=== PATIENT | female | born 1995 | race Caucasian/White ===

== ENCOUNTER → 2017-08-22 | Day surgery (SDC) | payer OTHER, SELFPAY | END | disposition home or self-care (01) | PROVIDERS: Family Provider Registered Nurse Diabetes Educator; PCP Registered Nurse Diabetes Educator; Visit Provider Specialist | DX: K43.9 Ventral hernia without obstruction or gangrene (principal) | CPT/HCPCS: 49560; J0690; J1100; J2175; J2250; J2405; J2704 ==

== ENCOUNTER 2018-08-30 15:23 | Emergency (ER) | payer OTHER, SELFPAY ==
[2018-08-30 15:34] VITALS: BP 123/70; PULSE 89; RESP 16; TEMP 36.9; O2SAT 99
--- NOTE | 2018-08-30 16:28 | PC.NURSE ---
pt reports, status post chiari decompression, august 11, noticed leaking, it was reglued. had lab work done at [facility] , pt continue to have discharged. site with minimal dc noted, site with derma bynum. pt reports, nausea, just removed her scopolamine patch, with dizziness with orthostatic, denies swallowing problem, denies paresthesia in all ext. denies any respiratory distress. \alert and awake, oriented x4, moving all ext well, skin warm dry pink. family at bs.
[2018-08-30 16:30] VITALS: BP 135/71; PULSE 55; RESP 14; O2SAT 97
--- NOTE | 2018-08-30 17:03 | DI.CT.S_ITS ---
PROCEDURE: CT CERVIAL SPINE W CON INDICATIONS: incision site drainage TECHNIQUE: After the administration of intravenous Isovue contrast, 3 mm thick sections acquired through the levels of interest. Sagittal and coronal reformats were then constructed. For radiation dose reduction, the following was used: automated exposure control. COMPARISON: [facility], CT, CT HEAD/BRAIN WO CON, 08/30/2018, 17:07. FINDINGS: Image quality: Excellent. Bones: No acute cervical spine fracture. There is straightening of the normal cervical lordosis. There is resection of the posterior occipital bone, posterior arch of C1, and posterior elements of C2. Soft tissues: There post surgical changes of recent posterior occipital craniectomy/posterior fossa decompression surgery, with overlying soft tissue edema. There is a 5.1 cm craniocaudal by 3.0 cm transverse by 3.8 cm anteroposterior fluid collection in the posterior occipital/posterior superior neck resection cavity. This fluid collection does not have a well formed wall, but demonstrates minimal peripheral contrast enhancement. Cerebellar tonsils are low-lying. There is mild bilateral cervical lymphadenopathy. IMPRESSION: 1. Postsurgical changes of recent posterior occipital craniectomy/posterior fossa decompression surgery with resection of the posterior arch of C1 and posterior elements of C2. 5.1 cm fluid collection in the posterior fossa/neck resection site likely represents a postsurgical seroma, although a CSF leak/collection or developing abscess could appear similar. There is no well-formed abscess wall on today's exam; minimal peripheral contrast enhancement may represent inflammation surrounding the surgical site. Recommend follow-up contrast-enhanced cross-sectional imaging to demonstrate stability/resolution. 2. Mild bilateral cervical lymphadenopathy, likely reactive to postsurgical changes described above. Attention on followup imaging recommended. 3. No acute cervical spine fracture. There is straightening of the normal cervical lordosis, which can be positional or secondary to muscle spasm. Findings discussed with the referring provider Dr. Melody Rooney at 6:50 PM on 08/30/[address] Jessica. Dictated by: Hay Jessica M.D. on 08/30/2018 at 19:24 Approved by: Hay Jessica M.D. on 08/30/2018 at 19:35
--- NOTE | 2018-08-30 17:03 | DI.CT.S_ITS ---
PROCEDURE: CT HEAD/BRAIN WO CON INDICATIONS: recent arnold Chiari surgery TECHNIQUE: Noncontrast 4.5 mm thick angled axial sections acquired from the foramen magnum to the vertex, with coronal and sagittal reformats. For radiation dose reduction, the following was used: automated exposure control, adjustment of mA and/or kV according to patient size. COMPARISON: None. FINDINGS: Image quality: Excellent. CSF spaces: Basal cisterns are patent. No extra-axial fluid collections. Ventricles are normal in size and shape. Brain: No midline shift. No intracranial masses or hemorrhage. Sims-white matter interface is normal. Skull and face: There are postsurgical changes of recent posterior occipital craniectomy/posterior fossa decompression surgery as well as resection of the posterior arch of C1. There is at least 3.0 cm partially imaged fluid collection in the craniectomy site resection bed. Sinuses: Visualized sinuses and mastoids are clear. IMPRESSION: 1. Postsurgical changes of recent posterior occipital craniectomy/posterior fossa decompression surgery with resection of the posterior arch of C1. A partially imaged at least 3.0 cm fluid collection in the posterior fossa/neck resection site likely represents a postsurgical seroma, although a CSF leak/collection or abscess could appear similar. 2. Otherwise, no acute intracranial abnormality. Findings discussed with the referring provider Dr. Melody Rooney at 6:50 PM on 08/30/[address] Jessica. Dictated by: Hay Jessica M.D. on 08/30/2018 at 18:48 Approved by: Hay Jessica M.D. on 08/30/2018 at 19:23
--- NOTE | 2018-08-30 17:08 | ED_ITS ---
HPI - Skin/Abscess/Foreign Bdy General Chief complaint: Skin/Abscess/Foreign Body Stated complaint: wound leaking from surgery Time Seen by Provider: 08/30/18 15:37 Source: patient and family Mode of arrival: ambulatory Limitations: no limitations History of Present Illness HPI narrative: Patient is a 22-year-old female who had Arnold-Chiari malformation and repair on 08/11/2018. She has been doing well. Her wound did dehisced about a week ago. A neurologist tried to repair the incision site with Dermabond. The Dermabond has fallen out mostly patient is having pain at the incision site. It is not erythematous. Mom states that the drainage is significantly worse and was running down her back. Mom says that it was mostly clear. She has not had any fever although she has been taking Tylenol ibuprofen and hydrocodone around the clock. She denies any numbness tingling or weakness in extremities. Related Data Home Medications Medication Instructions Recorded Confirmed biotin PO #0 06/08/16 norgestimate-ethinyl estradiol 1 tab PO QDAY #0 06/08/16 [Ortho-Cyclen (28)] Previous Rx's Medication Instructions Recorded cephalexin [Keflex] 500 mg PO QID #30 cap 08/30/18 hydrocodone-acetaminophen [Lewisberry] 1 tab PO Q4-6H PRN #10 tab 08/30/18 Allergies Allergy/AdvReac Type Severity Reaction Status Date / Time No Known Drug Allergies Allergy Verified 08/30/18 18:16 Review of Systems Review of Systems GENERAL: Denies chills, fatigue, malaise, fever, sweats, travel HEENT: Denies sinus pain, ear pain, sore throat, difficulty swallowing, neck pain RESPIRATORY: Denies dyspnea, cough, wheezing, hemoptysis, sputum. CARDIOVASCULAR: Denies chest pain, palpitations, orthopnea, edema GASTROINTESTINAL: Denies nausea, vomiting, abdominal pain, diarrhea, constipation, melena. : Denies dysuria, frequency, incontinence, hematuria, urinary retention, flank pain. MUSCULOSKELETAL: Denies weakness, joint pain, or bony pain SKIN: No rash, no erythema, no pruritus NEUROLOGIC: Denies weakness, dizziness, headache, numbness, change in speech, confusion PSYCHIATRIC: No concerning psychosocial issues. 12 point review of systems is negative except for those stated above and HPI [facility] Medical History Arnold-Chiari malformation (Acute) Social History Smoking Status: Never smoker Social History Smoking Status: Never smoker Exam Initial Vital Signs Initial Vital Signs: Vital Signs Temperature 98.4 F 08/30/18 15:34 Pulse Rate 89 08/30/18 15:34 Respiratory Rate 16 08/30/18 15:34 Blood Pressure 123/70 08/30/18 15:34 Pulse Oximetry 99 08/30/18 15:34 GENERAL: Alert young female no acute distress HEENT: Head atraumatic,EOMI, pupils reactive. incision site noted dehiscence. CARDIOVASCULAR: Regular rate and rhythm without murmurs, rubs or gallops. RESPIRATORY: Breath sounds equal bilaterally, no wheezes rales or rhonchi. ABDOMEN: Soft, nontender. Normoactive bowel sounds all 4 quadrants. No guarding or rebound. EXTREMITIES: Normal range of motion, no clubbing or edema. Neurovascularly intact NEUROLOGICAL: Alert and oriented x4.Normal gait and speech. Cranial nerves II through XII grossly intact. certified surgical tech/first assistant strength equal bilaterally able to flex and extend neck without difficulty. SKIN: Wound dehiscence posterior neck at incision site. Minimal erythema at the edges. No real drainage. Course Orders Ordered: Discontinued Medications Cefazolin Sodium (Keflex) [address] [facility] SEEINSTR ONE Stop: 08/30/18 19:30 Last Admin: 08/30/18 19:34 Dose: 500 mg Ketorolac Tromethamine (Toradol) 15 mg IV NOW ONE Stop: 08/30/18 18:15 Last Admin: 08/30/18 18:14 Dose: 15 mg Consultations Consultation #1: Neurosurgery premix operator concentrate, discussed patient's symptoms and test results with her. At this time recommend outpatient followup the office will call her on Saturday in 2 days. Time: 16:30 Vital Signs - 8 hr 08/30/18 15:34 08/30/18 16:30 08/30/18 18:15 Temperature 98.4 F Pulse Rate 89 55 L 91 H Respiratory Rate 16 14 15 Blood Pressure 123/70 Blood Pressure [Left Arm] 135/71 117/59 L Pulse Oximetry 99 97 100 08/30/18 18:18 Temperature Pulse Rate 90 Respiratory Rate 16 Blood Pressure Blood Pressure [Left Arm] 130/65 Pulse Oximetry 99 MDM - Skin/Abscess/Foreign Bdy Lab Data Attestation: I reviewed the patient's lab results. Result diagrams: 08/30/18 17:15 08/30/18 17:15 Lab Results 08/30/18 08/30/18 Range/Units 17:15 17:15 WBC 10.2 (4.5-11.0) X10^3/uL RBC 4.57 (4.0-5.2) X10^6/uL Hgb 12.7 (12.0-16.0) g/dL Hct 38.8 (36-46) % MCV 84.8 (80-100) fL MCH 27.9 (26-34) PG MCHC 32.8 (30-36) % RDW 16.7 H (11.6-14.8) % Plt Count 321 (150-400) X10^3/uL Neut % (Auto) 76.0 H (50-75) % Lymph % (Auto) 17.3 L (25-40) % [place] % (Auto) 5.4 (3-14) % Eos % (Auto) 0.8 L (2-4) % Baso % (Auto) 0.5 (0-2) % Neut # (Auto) 7800 H (9707-8149) /uL Lymph # (Auto) 1800 (2747-0959) /uL [place] # (Auto) 600 (0-900) /uL Eos # (Auto) 100 (0-450) /uL Baso # (Auto) 0 (0-100) /uL Sodium 139 (137-145) mmol/L Potassium 4.2 (3.4-5.1) mmol/L Chloride 101 (98-107) mmol/L Carbon Dioxide 26 (22-32) mmol/L BUN 13 (7-17) mg/dL Creatinine 0.80 (0.52-1.04) mg/dL Estimated GFR > 60.0 (>60) mL/min BUN/Creatinine Ratio 16.3 (6-22) Glucose 83 (70-100) mg/dL Calcium 9.8 (8.4-10.2) mg/dL Point of Care Testing Test Results Negative Imaging Data CT scan - head: Radiologist's impression: PROCEDURE: CT HEAD/BRAIN WO CON INDICATIONS: recent arnold Chiari surgery TECHNIQUE: Noncontrast 4.5 mm thick angled axial sections acquired from the foramen magnum to the vertex, with coronal and sagittal reformats. For radiation dose reduction, the following was used: automated exposure control, adjustment of mA and/or kV according to patient size. COMPARISON: None. FINDINGS: Image quality: Excellent. CSF spaces: Basal cisterns are patent. No extra-axial fluid collections. Ventricles are normal in size and shape. Brain: No midline shift. No intracranial masses or hemorrhage. Sims-white matter interface is normal. Skull and face: There are postsurgical changes of recent posterior occipital craniectomy/posterior fossa decompression surgery as well as resection of the posterior arch of C1. There is at least 3.0 cm partially imaged fluid collection in the craniectomy site resection bed. Sinuses: Visualized sinuses and mastoids are clear. IMPRESSION: 1. Postsurgical changes of recent posterior occipital craniectomy/posterior fossa decompression surgery with resection of the posterior arch of C1. A partially imaged at least 3.0 cm fluid collection in the posterior fossa/neck resection site likely represents a postsurgical seroma, although a CSF leak/collection or abscess could appear similar. 2. Otherwise, no acute intracranial abnormality. Findings discussed with the referring provider Dr. Melody Rooney at 6:50 PM on 08/30/[address] Gonsalez. Dictated by: Hay Gonsalez M.D. on 08/30/2018 at 18:48 CT Cervical: Radiologist's impression: PROCEDURE: CT CERVIAL SPINE W CON INDICATIONS: incision site drainage TECHNIQUE: After the administration of intravenous Isovue contrast, 3 mm thick sections acquired through the levels of interest. Sagittal and coronal reformats were then constructed. For radiation dose reduction, the following was used: automated exposure control. COMPARISON: [facility], CT, CT HEAD/BRAIN WO CON, 08/30/2018, 17:07. FINDINGS: Image quality: Excellent. Bones: No acute cervical spine fracture. There is straightening of the normal cervical lordosis. There is resection of the posterior occipital bone, posterior arch of C1, and posterior elements of C2. Soft tissues: There post surgical changes of recent posterior occipital craniectomy/posterior fossa decompression surgery, with overlying soft tissue edema. There is a 5.1 cm craniocaudal by 3.0 cm transverse by 3.8 cm anteroposterior fluid collection in the posterior occipital/posterior superior neck resection cavity. This fluid collection does not have a well formed wall, but demonstrates minimal peripheral contrast enhancement. Cerebellar tonsils are low-lying. There is mild bilateral cervical lymphadenopathy. IMPRESSION: 1. Postsurgical changes of recent posterior occipital craniectomy/posterior fossa decompression surgery with resection of the posterior arch of C1 and posterior elements of C2. 5.1 cm fluid collection in the posterior fossa/neck resection site likely represents a postsurgical seroma, although a CSF leak/collection or developing abscess could appear similar. There is no well-formed abscess wall on today's exam; minimal peripheral contrast enhancement may represent inflammation surrounding the surgical site. Recommend follow-up contrast-enhanced cross-sectional imaging to demonstrate stability/resolution. 2. Mild bilateral cervical lymphadenopathy, likely reactive to postsurgical changes described above. Attention on followup imaging recommended. 3. No acute cervical spine fracture. There is straightening of the normal cervical lordosis, which can be positional or secondary to muscle spasm. Findings discussed with the referring provider Dr. Melody Rooney at 6:50 PM on 08/30/[address] Gonsalez. Dictated by: Hay Gonsalez M.D. on 08/30/2018 at 19:24 MDM Narrative Medical decision making narrative: After speaking with neurosurgeon I went back and saw on re-evaluated patient. There is actually a small amount of gross pus. A wound culture has been sent. Family and patient frustrated. At this time will get head CT and CT neck to rule out any abscess along with repeating blood work. Dr. Gonsalez 6:50 p.m. radiologist called and spoke with me. I discussed specifically with them about a fluid collection and questionable abscess. He stated that he thought this was likely postsurgical changes. Difficult to say if there is abscess but he did not think so. Patient overall does not appear septic or toxic. She does continue to have clear drainage at her surgical site. She does have a small amount of pus from 1 area on her incision site. No significant erythema will put her on Keflex. They are given a disc with the CT images to go over with her neurosurgeon. Mom and patient overall feeling better. Discharge Plan Departure Patient Disposition: Home Clinical Impression: Cellulitis Qualifiers: Site of cellulitis: neck Qualified Code(s): L03.221 - Cellulitis of neck Discharge Date/Time: 08/30/18 19:45 Interventions: ED Discharge Assessment Last Done: 08/30/18 19:45 Instructions: DI for Cellulitis -- Adult Activity Restrictions/Additional Instructions: *You have been diagnosed with cellulitis *What to do: CT shows probable postsurgical changes. There is a small amount of infection on the skin and with incision site. However this can be managed easily with antibiotics. *Continue to take medications as directed Keflex 500 mg 4 times a day for 7 days *Follow up with your neurosurgeon 1st thing Saturday morning in fact they should call you Saturday, however he do not hear for them please call *Return to ER if you should have weakness numbness tingling in extremities, or any new, worsening or concerning symptoms CONTROLLED SUBSTANCE DISCHARGE (Narcotoic/benzodiazepine/Flexeril/Phenergan) 1. You have been prescribed narcotic medications, it does have acetaminophen/Tylenol/paracetamol in it so do not take extra Tylenol or Tylenol containing products 2. Please understand that we cannot provide further refills of narcotics, benzodiazepines or controlled substances through the ED and her pain management will need to be through your provider. 3. While on these medications you cannot drive or operate heavy machinery. 4. You cannot sign legal documents or perform any duties such as this. 5. As long as you're taking opiate pain medications he should also be taking a stool softener such as Colace, Dulcolax, MiraLAX or prune juice, to help avoid constipation. Prescriptions: New cephalexin [Keflex] 500 mg capsule 500 mg PO QID Qty: 30 RF: 0 hydrocodone-acetaminophen [Lewisberry] 5-325 mg tablet 1 tab PO Q4-6H PRN (Reason: pain) Qty: 10 RF: 0 No Action norgestimate-ethinyl estradiol [Ortho-Cyclen (28)] 1 EACH tablet 1 tab PO QDAY Qty: 0 RF: 0 biotin 1 mg capsule PO Qty: 0 RF: 0 Referrals: Darwin Yan CNP [Primary Care Provider] -
[2018-08-30 17:30] LABS: Add Manual Diff / Slide Review NO; Basophils Absolute Auto 0 /uL (0-100); Basophils Percent Auto 0.5 % (0-2); Eosinophils Absolute Auto 100 /uL (0-450); Eosinophils Percent Auto 0.8 % (2-4); Hematocrit 38.8 % (36-46); Hemoglobin 12.7 g/dL (12.0-16.0); Lymphocytes Absolute Auto 1800 /uL (1100-4500); Lymphocytes Percent Auto 17.3 % (25-40); Mean Corpuscular HGB Conc 32.8 % (30-36); Mean Corpuscular Hemoglobin 27.9 PG (26-34); Mean Corpuscular Volume 84.8 fL (80-100); Monocytes Absolute Auto 600 /uL (0-900); Monocytes Percent Auto 5.4 % (3-14); Neutrophils Absolute Auto 7800 /uL (1500-7000); Platelet Count 321 X10^3/uL (150-400); Red Blood Cell Count 4.57 X10^6/uL (4.0-5.2); Red Cell Distribution Width 16.7 % (11.6-14.8); White Blood Cell Count 10.2 X10^3/uL (4.5-11.0)
[2018-08-30 17:37] LABS: BUN Creatinine Ratio 16.3 (6-22); Blood Urea Nitrogen 13 mg/dL (7-17); Calcium 9.8 mg/dL (8.4-10.2); Carbon Dioxide 26 mmol/L (22-32); Chloride 101 mmol/L (98-107); Estimated Glomerular Filt Rate > 60.0 mL/min (>60); Glucose 83 mg/dL (70-100); HEMOLYSIS < 15 (0-50); Potassium 4.2 mmol/L (3.4-5.1); Sodium 139 mmol/L (137-145)
[2018-08-30] MEDS: KETOROLAC 60 MG/2 ML VIAL 15 MG IV (18:14)
[2018-08-30 18:15] VITALS: BP 117/59; PULSE 91; RESP 15; O2SAT 100
[2018-08-30 18:18] VITALS: BP 130/65; PULSE 90; RESP 16; O2SAT 99
--- NOTE | 2018-08-30 18:51 | PC.NURSE ---
belen conversing with radiologist.
[2018-08-30] MEDS: cephALEXin 250 MG PREPACK 1 BOTTLE MISC (19:34)
[2018-08-30 19:45] VITALS: BP 111/76; PULSE 102; RESP 16; TEMP 36.9; O2SAT 100
== END 2018-08-30 19:45 | disposition home or self-care (01) ==
PROVIDERS: Emergency Provider Emergency Medicine; Family Provider Registered Nurse Diabetes Educator; PCP Registered Nurse Diabetes Educator
DX: L03.221 Cellulitis of neck (principal); Z98.890 Other specified postprocedural states; T14.8XXA Other injury of unspecified body region, initial encounter
CPT/HCPCS: 36591; 70450; 72126; 80048; 81025; 85025; 87070; 87075; 87077; 87147; 87186; 87205; 96372; 99283; 99284; J1885; Q9967